=== PATIENT | female | born 2000 | race Two or more races ===

== ENCOUNTER 2020-10-02 12:30 | Inpatient (IN) | payer OTHER ==
[~2020-10-02] VITALS: Ht 154.9 cm; Wt 61.2 kg
[2020-10-10] MEDS ORDERED: PRENATAL CAPLE1 EAC1 PO (21:33)
[2020-10-10] MEDS ORDERED: FE C PLUS TABL1 EACH PO (21:34)
== END 2020-10-13 09:33 | disposition home or self-care (01) | DRG 807 ==
LOC: LDR 10-10 21:07 → OB/GYN 10-11 01:57
PROVIDERS: ADMIT Obstetrics & Gynecology; ATTEND Obstetrics & Gynecology
PROC: 10E0XZZ Delivery of Products of Conception, External Approach (ICD-10-PCS; principal; 2020-10-11)
PROC: 3E033VJ Introduction of Other Hormone into Peripheral Vein, Percutaneous Approach (ICD-10-PCS; 2020-10-11)
PROC: 4A1HXFZ Monitoring of Products of Conception, Cardiac Rhythm, External Approach (ICD-10-PCS; 2020-10-11)
DX: O70.0 First degree perineal laceration during delivery (principal); Z37.0 Single live birth; Z3A.38 38 weeks gestation of pregnancy; Z20.822 Contact with and (suspected) exposure to COVID-19

== ENCOUNTER 2020-10-10 12:40 | Outpatient (CLI) | payer OTHER ==
[2020-10-10] MEDS ORDERED: PRENATAL CAPLE1 EAC1 PO (21:33)
[2020-10-10] MEDS ORDERED: FE C PLUS TABL1 EACH PO (21:34)
== END 2020-10-10 13:06 | disposition home or self-care (01) ==
LOC: NST 12:40
PROVIDERS: ATTEND Obstetrics & Gynecology
DX: Z34.83 Encounter for supervision of other normal pregnancy, third trimester (principal)

== ENCOUNTER 2022-10-05 09:30 | Inpatient (IN) | payer OTHER ==
[~2022-10-05] VITALS: Ht 154.9 cm; Wt 1.8 kg
[~2022-10-05 09:30] MED LIST: FE C PLUS TABL1 EACH PO; PRENATAL CAPLE1 EAC1 PO
== END 2022-10-07 11:51 | disposition home or self-care (01) | DRG 783 ==
LOC: LDR 09:30 → OB/GYN 09:30
PROVIDERS: Obstetrics & Gynecology Gynecology; ADMIT Obstetrics & Gynecology; ATTEND Obstetrics & Gynecology
PROC: 0UB70ZZ Excision of Bilateral Fallopian Tubes, Open Approach (ICD-10-PCS; 2022-10-05)
PROC: 4A1HXCZ Monitoring of Products of Conception, Cardiac Rate, External Approach (ICD-10-PCS; 2022-10-05)
PROC: 10D00Z1 Extraction of Products of Conception, Low, Open Approach (ICD-10-PCS; principal; 2022-10-05 14:00)
DX: O32.1XX0 Maternal care for breech presentation, not applicable or unspecified (principal); O60.14X0 Preterm labor third trimester with preterm delivery third trimester, not applicable or unspecified; Z3A.36 36 weeks gestation of pregnancy; Z37.0 Single live birth; Z20.822 Contact with and (suspected) exposure to COVID-19; Z30.2 Encounter for sterilization